=== PATIENT | female | born 1960 | race Caucasian/White ===

== ENCOUNTER 2018-04-05 18:18 | Inpatient (IN) | payer MEDICAID ==
--- NOTE | 2018-04-05 18:32 | EDPHY ---
H & P Stated Complaint: abdominal pain for over 3 weeks, not getting better Time Seen by Provider: 04/05/18 18:30 - Medical/Surgical History Hx Asthma: No Hx Chronic Respiratory Disease: No Hx Diabetes: No Hx Cardiac Disease: No Hx Renal Disease: No Hx Cirrhosis: No Hx Alcoholism: No Hx HIV/AIDS: No Hx Splenectomy or Spleen Trauma: No Other PMH: bulemia, hypothyroid, kidney stones, depression - Social History Smoking Status: Former smoker Constitutional: Initial Vital Signs Temperature (C) 36.7 C 04/05/18 18:22 Heart Rate 79 04/05/18 18:22 Respiratory Rate 18 04/05/18 18:22 Blood Pressure 116/67 04/05/18 18:22 O2 Sat (%) 96 04/05/18 18:22 O2 Delivery Mode Room Air Allergies/Adverse Reactions: ibuprofen Allergy (Verified 04/05/18 18:21) Penicillins Allergy (Verified 04/05/18 18:21) Home Medications: Medication Instructions Recorded Thyroid,Pork [[place] Thyroid] 0 mg PO 06/08/13 ESTRADIOL ACETATE 04/05/18 Xifaxan 04/05/18 Medical Decision Making - Diagnostics Imaging Results: Imaging Impressions Abdomen CT 04/05/18 18:45 Impression: 1. Complex conglomerate mass measuring 11 cm in diameter in the lower abdomen and pelvis. This is in association with nodular implantation on the contour of the liver suspicious for metastatic disease. This could reflect an ovarian primary. 2. See above report for additional findings. Results called and discussed with Harshad Thomas MD on 04/05/2018 19:53. Imaging: Discussed imaging studies w/ writer producer Radiologist, I viewed and interpreted images myself ED Course/Re-evaluation: CHIEF COMPLAINT: Abdominal pain HISTORY OF PRESENT ILLNESS: The patient is a 57 y/o female complaining of persistent lower abdominal pain for the last three weeks. She has been evaluated for this at [facility] multiple times and was recently placed on Xifaxan for "small bowel overgrowth syndrome." She has not had any imaging performed since symptoms began. She has a history of an eating disorder that she reports is in remission and has impaired peristalsis following a back injury. She takes magnesium daily and reports taking 8 pills today due to her discomfort. She did have a loose bowel movement afterwards. She denies fever, vomiting, urinary symptoms, cough, cold, chest pain, dyspnea, recent illness, or recent trauma. REVIEW OF SYSTEMS: A 10 point review of systems was performed and is negative with the exception of the elements mentioned in the history of present illness. PHYSICAL EXAM: HR, BP, O2 Sat, RR. Temp noted General Appearance: Alert, well hydrated, appropriate, and non-toxic appearing. Head: Atraumatic without scalp tenderness or obvious injury Eyes: Pupils equal, round, reactive to light and accommodation, EOMI, no trauma , no injection. Nose: Atraumatic, no rhinorrhea, clear. Throat: Mucus membranes moist. Neck: Supple Respiratory: No retractions, no distress, no wheezes, and no accessory muscle use. Lungs are clear to auscultation bilaterally. Cardiovascular: Regular rate and rhythm, no murmurs, rubs, or gallops. Good capillary refill all extremities. Gastrointestinal: Abdomen is bloated, diffuse tenderness, no masses, no rebound , no guarding, no peritoneal signs. Tympanitic bowel sounds. Musculoskeletal: Normal active ROM of all extremities, atraumatic. Neurological: Alert, appropriate, and interactive. Nonfocal. Skin: No rashes, good turgor, no nodules on palpation. Past medical history: Back injury with impaired peristalsis, history of eating disorder (bulimia), right femoral hernia, hypothyroidism, kidney stones Past surgical history: denies Family history: Father had bladder cancer Social history: Lives in [place]. Not employed/disabled. PCP: [facility] DIAGNOSTICS/PROCEDURES/CRITICAL CARE TIME: Abdominal CT: large abdominal mass DIFFERENTIAL DIAGNOSIS: The differential diagnosis for the patient's abdominal pain included but was not limited to ovarian cyst, pelvic inflammatory disease, ovarian torsion, urinary tract infection, ectopic , cholecystitis, and appendicitis. MEDICAL DECISION MAKING: This is a 57 y/o female with a history of bulimia and impaired peristalsis who presents with a 3-week history of persistent lower abdominal pain and bloating. She has a bloated and diffusely tender abdomen with tympanic bowel sounds on exam. She did have a loose bowel movement today following excessive magnesium use. Concern for mass. Plan for IV, ISTAT, abdomen CT, and symptomatic management as needed. 1L IV NS ordered. Reassessed patient and discussed results. She is resting comfortably. Recommended admission for further management, which she agrees to. Surgeon has been paged. CA 125 and CEA labs ordered. Consulted with Dr. Hernandez, surgeon. He will consult during admission. Spoke with hospitalist service. Dr. Pickett accepts admission. - Data Points Laboratory Results: Laboratory Results 04/05/18 18:36 04/05/18 18:36 04/05/18 04/05/18 04/05/18 20:17 19:33 18:52 WBC RBC Hgb POC Hgb 13.6 gm/dL gm/dL (12.6-16.3) Hct POC Hct 40 % % (38-47) MCV MCH MCHC RDW Plt Count MPV Neut % (Auto) Lymph % (Auto) [place] % (Auto) Eos % (Auto) Baso % (Auto) Nucleat RBC Rel Count Absolute Neuts (auto) Absolute Lymphs (auto) Absolute Monos (auto) Absolute Eos (auto) Absolute Basos (auto) Absolute Nucleated RBC Immature Gran % Immature Gran # POC Sodium 138 mEq/L mEq/L (135-145) Sodium POC Potassium 3.4 mEq/L mEq/L (3.3-5.0) Potassium POC Chloride 101 mEq/L mEq/L (97-110) Chloride Carbon Dioxide Anion Gap POC BUN 16 mg/dL mg/dL (7-23) BUN Creatinine POC Creatinine 1.0 mg/dL mg/dL (0.6-1.0) Estimated GFR Glucose POC Glucose 95 mg/dL mg/dL (70-100) Calcium Total Bilirubin Conjugated Bilirubin Unconjugated Bilirubin AST ALT Alkaline Phosphatase Total Protein Albumin Lipase Carcinoembryonic Ag Pending CA 125 Antigen Urine Color PALE YELLOW Urine Appearance CLEAR Urine pH 6.0 (5.0-7.5) Ur Specific [place] 1.011 (1.002-1.030) Urine Protein NEGATIVE (NEGATIVE) Urine Ketones NEGATIVE (NEGATIVE) Urine Blood NEGATIVE (NEGATIVE) Urine Nitrate NEGATIVE (NEGATIVE) Urine Bilirubin NEGATIVE (NEGATIVE) Urine Urobilinogen NEGATIVE EU EU (0.2-1.0) Ur Leukocyte Esterase NEGATIVE (NEGATIVE) Urine RBC 10-15 /hpf H /hpf (0-3) Urine WBC 1-3 /hpf /hpf (0-3) Ur Epithelial Cells TRACE /lpf /lpf (NONE-1+) Urine Bacteria TRACE /hpf H /hpf (NONE SEEN) Urine Glucose NEGATIVE (NEGATIVE) 04/05/18 04/05/18 04/05/18 18:36 18:36 18:36 WBC 11.41 10^3/uL H 10^3/uL (3.80-9.50) RBC 3.94 10^6/uL L 10^6/uL (4.18-5.33) Hgb 13.5 g/dL g/dL (12.6-16.3) POC Hgb Hct 38.2 % % (38.0-47.0) POC Hct MCV 97.0 fL fL (81.5-99.8) MCH 34.3 pg H pg (27.9-34.1) MCHC 35.3 g/dL g/dL (32.4-36.7) RDW 11.8 % % (11.5-15.2) Plt Count 418 10^3/uL H 10^3/uL (150-400) MPV 10.1 fL fL (8.7-11.7) Neut % (Auto) 75.0 % H % (39.3-74.2) Lymph % (Auto) 15.9 % % (15.0-45.0) [place] % (Auto) 8.2 % % (4.5-13.0) Eos % (Auto) 0.3 % L % (0.6-7.6) Baso % (Auto) 0.3 % % (0.3-1.7) Nucleat RBC Rel Count 0.0 % % (0.0-0.2) Absolute Neuts (auto) 8.57 10^3/uL H 10^3/uL (1.70-6.50) Absolute Lymphs (auto) 1.81 10^3/uL 10^3/uL (1.00-3.00) Absolute Monos (auto) 0.94 10^3/uL H 10^3/uL (0.30-0.80) Absolute Eos (auto) 0.03 10^3/uL 10^3/uL (0.03-0.40) Absolute Basos (auto) 0.03 10^3/uL 10^3/uL (0.02-0.10) Absolute Nucleated RBC 0.00 10^3/uL 10^3/uL (0-0.01) Immature Gran % 0.3 % % (0.0-1.1) Immature Gran # 0.03 10^3/uL 10^3/uL (0.00-0.10) POC Sodium Sodium 134 mEq/L L mEq/L (135-145) POC Potassium Potassium 4.0 mEq/L mEq/L (3.3-5.0) POC Chloride Chloride 101 mEq/L mEq/L (97-110) Carbon Dioxide 26 mEq/l mEq/l (22-31) Anion Gap 7 mEq/L L mEq/L (8-16) POC BUN BUN 17 mg/dL mg/dL (7-23) Creatinine 0.8 mg/dL mg/dL (0.6-1.0) POC Creatinine Estimated GFR > 60 Glucose 87 mg/dL mg/dL (70-100) POC Glucose Calcium 9.9 mg/dL mg/dL (8.5-10.4) Total Bilirubin 0.4 mg/dL mg/dL (0.1-1.4) Conjugated Bilirubin 0.3 mg/dL mg/dL (0.0-0.5) Unconjugated Bilirubin 0.1 mg/dL mg/dL (0.0-1.1) AST 28 IU/L IU/L (14-46) ALT 30 IU/L IU/L (9-52) Alkaline Phosphatase 105 IU/L IU/L (38-126) Total Protein 6.9 g/dL g/dL (6.3-8.2) Albumin 3.9 g/dL g/dL (3.5-5.0) Lipase 91 IU/L IU/L (23-300) Carcinoembryonic Ag CA 125 Antigen Pending Urine Color Urine Appearance Urine pH Ur Specific [place] Urine Protein Urine Ketones Urine Blood Urine Nitrate Urine Bilirubin Urine Urobilinogen Ur Leukocyte Esterase Urine RBC Urine WBC Ur Epithelial Cells Urine Bacteria Urine Glucose Medications Given: Discontinued Medications Sodium Chloride (Ns) 1,000 mls @ 0 mls/hr IV EDNOW ONE; Wide Open PRN Reason: Protocol Stop: 04/05/18 18:45 Last Admin: 04/05/18 18:51 Dose: 1,000 mls Point of Care Test Results: Chemistry 04/05/18 18:52 POC Sodium 138 mEq/L mEq/L (135-145) POC Potassium 3.4 mEq/L mEq/L (3.3-5.0) POC Chloride 101 mEq/L mEq/L (97-110) POC BUN 16 mg/dL mg/dL (7-23) POC Creatinine 1.0 mg/dL mg/dL (0.6-1.0) POC Glucose 95 mg/dL mg/dL (70-100) ISTAT H&H 04/05/18 18:52 POC Hgb 13.6 gm/dL gm/dL (12.6-16.3) POC Hct 40 % % (38-47) Departure - Departure Disposition: [facility] Inpatient Acute Clinical Impression: Abdominal mass Qualifiers: Abdominal location: other location Qualified Code(s): R19.09 - Other intra- abdominal and pelvic swelling, mass and lump Abdominal pain Qualifiers: Abdominal location: generalized Qualified Code(s): R10.84 - Generalized abdominal pain Condition: Fair Referrals: Juli Rhodes PA [Primary Care Provider] - As per Instructions Report Scribed for: Harshad Thomas Report Scribed by: Belen Luciano Date of Report: 04/05/18 Time of Report: 19:00
[2018-04-05] MEDS ORDERED: NS 1,000 ML IV ONE (18:44)
[2018-04-05 18:53] LABS: PLATELET COUNT 418 10^3/uL (150-400)
[2018-04-05] MEDS ORDERED: IOPAMIDOL (ISOVUE-300) 100 ML BTL ONE (18:57)
[2018-04-05] MEDS ORDERED: ONDANSETRON 4 MG/2 ML VIAL IVP PRN (20:25)
[2018-04-05] MEDS ORDERED: ONDANSETRON DISINTEGRATING 4 MG TAB PO PRN (20:25)
[2018-04-05] MEDS ORDERED: ASPIRIN 325 MG TAB PO ONE (21:25)
--- NOTE | 2018-04-05 23:17 | SOAPPROG ---
SOAP Progress Note Assessment/Plan: Assessment: 57 FEMALE WITH ABD PAIN FOR 2 WEEKS/ NO GI SX OR FEVER CT REVEALS A LARGE PELVIC MASS WITH METS TO OMENTUM AND LIVER SURFACE CONSISTENT WITH OVARIAN CANCER CA-125 337 ABD SOFT BUT WITH PALPABLE MASS IN LOW ABDOMEN NO ADENOPATHY CHEST CLEAR COR RR PMH - ALL PCN, IBUPROFEN Plan:WILL NEED BX, EITHER CT GUIDED OR LAPARASCOPIC SURGICAL BX/ DISCUSS WITH IR, IM AND ONC 04/05/18 23:12 Objective: Vital Signs Temp Pulse Resp BP Pulse Ox 36.6 C 49 L 17 105/57 L 96 04/05/18 22:06 04/05/18 22:06 04/05/18 22:06 04/05/18 22:06 04/05/18 22:06 04/04/18 04/05/18 04/06/18 05:59 05:59 05:59 Intake Total 1000 Balance 1000 ICD10 Worksheet Patient Problems: Problems Problem Status Onset Abdominal mass Acute Abdominal pain Acute
--- NOTE | 2018-04-06 00:30 | PDGENHP ---
History and Physical - Chief Complaint Abdominal pain - History of Present Illness 57 yo F w/ minimal PMHx p/w 3 weeks of abdominal pain. Patient has had progressive abdominal pain for several weeks. She has chronic constipation related to a back injury for which she takes Magnesium. She has felt more constipated over the last few days so she increased her Mg dose. Over the last couple of days she has felt so fatigued she has not been able to get out of bed. She was prescribed rifaximin at [facility] for treatment of bacterial overgrowth but this was not helpful. She denies significant weigh loss (says about 2 lbs) or night sweats. In the ED CT scan of the abdomen was notable for large pelvic mass with likely metastasis to the liver concerning for ovarian primary. She is being admitted for expedited work-up of this. Discussed case with Dr. Pickett, records reviewed. History Information - Allergies/Home Medication List Allergies/Adverse Reactions: ibuprofen Allergy (Verified 04/05/18 18:21) Penicillins Allergy (Verified 04/05/18 18:21) Home Medications: Acyclovir [Zovirax 400 mg (*)] 400 mg PO BID PRN 04/05/18 [Last Taken Unknown] Estradiol [Estradiol] 1 patch TD TUFR 04/05/18 [Last Taken 04/02/18] Herbals/Supplements -Info Only 1 ea PO DAILY 04/05/18 [Last Taken Unknown] Rifaximin [Xifaxan 200mg (*)] 400 mg PO TID 04/05/18 [Last Taken 04/05/18] Thyroid [[place] Thyroid 60 MG (*)] 60 mg PO DAILY 04/05/18 [Last Taken 04/05/18] I have personally reviewed and updated: family history, medical history - Past Medical History Additional medical history: Urolithiasis - Surgical History Reports: spinal surgery - Family History Additional family history: Father had bladder cancer - Social History Smoking Status: Former smoker (Quit in 2000) Review of Systems Review of Systems: ROS: 10pt was reviewed & negative except for what was stated in HPI & below Physical Exam Physical Exam: Temp Pulse Resp BP Pulse Ox 36.6 C 57 L 17 105/64 94 04/05/18 23:51 04/05/18 23:51 04/05/18 23:51 04/05/18 23:51 04/05/18 23:51 Constitutional: no apparent distress, not in pain Eyes: PERRL, EOMI Ears, Nose, Mouth, Throat: moist mucous membranes, no oral mucosal ulcers Cardiovascular: regular rate and rhythym, no murmur, rub, or gallop Respiratory: no respiratory distress, no rales or rhonchi Gastrointestinal: normoactive bowel sounds, other (Mass palpable in lower abdomen) Skin: warm, normal color Musculoskeletal: full muscle strength, no muscle tenderness Neurologic: AAOx3, CN II-XII Intact Psychiatric: interacting appropriately, not anxious Lab Data & Imaging Review 04/05/18 18:36 04/05/18 18:36 WBC 11.41 10^3/uL (3.80-9.50) H 04/05/18 18:36 RBC 3.94 10^6/uL (4.18-5.33) L 04/05/18 18:36 Hgb 13.5 g/dL (12.6-16.3) 04/05/18 18:36 POC Hgb 13.6 gm/dL (12.6-16.3) 04/05/18 18:52 Hct 38.2 % (38.0-47.0) 04/05/18 18:36 POC Hct 40 % (38-47) 04/05/18 18:52 MCV 97.0 fL (81.5-99.8) 04/05/18 18:36 MCH 34.3 pg (27.9-34.1) H 04/05/18 18:36 MCHC 35.3 g/dL (32.4-36.7) 04/05/18 18:36 RDW 11.8 % (11.5-15.2) 04/05/18 18:36 Plt Count 418 10^3/uL (150-400) H 04/05/18 18:36 MPV 10.1 fL (8.7-11.7) 04/05/18 18:36 Neut % (Auto) 75.0 % (39.3-74.2) H 04/05/18 18:36 Lymph % (Auto) 15.9 % (15.0-45.0) 04/05/18 18:36 [place] % (Auto) 8.2 % (4.5-13.0) 04/05/18 18:36 Eos % (Auto) 0.3 % (0.6-7.6) L 04/05/18 18:36 Baso % (Auto) 0.3 % (0.3-1.7) 04/05/18 18:36 Nucleat RBC Rel Count 0.0 % (0.0-0.2) 04/05/18 18:36 Absolute Neuts (auto) 8.57 10^3/uL (1.70-6.50) H 04/05/18 18:36 Absolute Lymphs (auto) 1.81 10^3/uL (1.00-3.00) 04/05/18 18:36 Absolute Monos (auto) 0.94 10^3/uL (0.30-0.80) H 04/05/18 18:36 Absolute Eos (auto) 0.03 10^3/uL (0.03-0.40) 04/05/18 18:36 Absolute Basos (auto) 0.03 10^3/uL (0.02-0.10) 04/05/18 18:36 Absolute Nucleated RBC 0.00 10^3/uL (0-0.01) 04/05/18 18:36 Immature Gran % 0.3 % (0.0-1.1) 04/05/18 18:36 Immature Gran # 0.03 10^3/uL (0.00-0.10) 04/05/18 18:36 POC Sodium 138 mEq/L (135-145) 04/05/18 18:52 Sodium 134 mEq/L (135-145) L 04/05/18 18:36 POC Potassium 3.4 mEq/L (3.3-5.0) 04/05/18 18:52 Potassium 4.0 mEq/L (3.3-5.0) 04/05/18 18:36 POC Chloride 101 mEq/L (97-110) 04/05/18 18:52 Chloride 101 mEq/L (97-110) 04/05/18 18:36 Carbon Dioxide 26 mEq/l (22-31) 04/05/18 18:36 Anion Gap 7 mEq/L (8-16) L 04/05/18 18:36 POC BUN 16 mg/dL (7-23) 04/05/18 18:52 BUN 17 mg/dL (7-23) 04/05/18 18:36 Creatinine 0.8 mg/dL (0.6-1.0) 04/05/18 18:36 POC Creatinine 1.0 mg/dL (0.6-1.0) 04/05/18 18:52 Estimated GFR > 60 04/05/18 18:36 Glucose 87 mg/dL (70-100) 04/05/18 18:36 POC Glucose 95 mg/dL (70-100) 04/05/18 18:52 Calcium 9.9 mg/dL (8.5-10.4) 04/05/18 18:36 Total Bilirubin 0.4 mg/dL (0.1-1.4) 04/05/18 18:36 Conjugated Bilirubin 0.3 mg/dL (0.0-0.5) 04/05/18 18:36 Unconjugated Bilirubin 0.1 mg/dL (0.0-1.1) 04/05/18 18:36 AST 28 IU/L (14-46) 04/05/18 18:36 ALT 30 IU/L (9-52) 04/05/18 18:36 Alkaline Phosphatase 105 IU/L (38-126) 04/05/18 18:36 Total Protein 6.9 g/dL (6.3-8.2) 04/05/18 18:36 Albumin 3.9 g/dL (3.5-5.0) 04/05/18 18:36 Lipase 91 IU/L (23-300) 04/05/18 18:36 Carcinoembryonic Ag 0.42 ng/mL (0.00-3.00) 04/05/18 20:17 CA 125 Antigen 337.0 U/mL (0.0-35.0) H 04/05/18 18:36 Urine Color PALE YELLOW 04/05/18 19:33 Urine Appearance CLEAR 04/05/18 19:33 Urine pH 6.0 (5.0-7.5) 04/05/18 19:33 Ur Specific [place] 1.011 (1.002-1.030) 04/05/18 19:33 Urine Protein NEGATIVE (NEGATIVE) 04/05/18 19:33 Urine Ketones NEGATIVE (NEGATIVE) 04/05/18 19:33 Urine Blood NEGATIVE (NEGATIVE) 04/05/18 19:33 Urine Nitrate NEGATIVE (NEGATIVE) 04/05/18 19:33 Urine Bilirubin NEGATIVE (NEGATIVE) 04/05/18 19:33 Urine Urobilinogen NEGATIVE EU (0.2-1.0) 04/05/18 19:33 Ur Leukocyte Esterase NEGATIVE (NEGATIVE) 04/05/18 19:33 Urine RBC 10-15 /hpf (0-3) H 04/05/18 19:33 Urine WBC 1-3 /hpf (0-3) 04/05/18 19:33 Ur Epithelial Cells TRACE /lpf (NONE-1+) 04/05/18 19:33 Urine Bacteria TRACE /hpf (NONE SEEN) H 04/05/18 19:33 Urine Glucose NEGATIVE (NEGATIVE) 04/05/18 19:33 Imaging Review: Imaging Impressions Abdomen CT 04/05/18 18:45 Impression: 1. Complex conglomerate mass measuring 11 cm in diameter in the lower abdomen and pelvis. This is in association with nodular implantation on the contour of the liver suspicious for metastatic disease. This could reflect an ovarian primary. 2. See above report for additional findings. Results called and discussed with Harshad Thomas MD on 04/05/2018 19:53. Assessment & Plan Assessment: 57 yo F p/w abdominal pain and found to have 11 cm pelvic mass concerning for ovarian cancer. Plan: 1. Pelvic mass - Presents with 3 weeks of abdominal discomfort; CT notable for complex conglomerate mass measuring 11 cm in diameter in the lower abdomen and pelvis. Nodular implantation on the contour of the liver suspicious for metastatic disease, which could reflect an ovarian primary. - Admit for expedited work-up - CA-125 337 - General surgery consulted re: possible biopsy, appreciate assistance - Will make NPO @ [place] - Oncology consult in the morning Diet - NPO @ [place] Code - Full Ppx - SCDs Dispo - Admit under inpatient status noting need for biopsy and further work-up
[2018-04-06] MEDS ORDERED: D5W 1/2 NS 1,000 ML IV SCH (06:00)
--- NOTE | 2018-04-06 08:22 | PDMN ---
Medical Necessity Medical necessity: est los>2mn for pelvic mass w/ 3 wks abd discomfort, suspicious for ovarian primary w/mets; admit for bx , CT guided vs lap surgery, and further w/u; per order and H&P 04/05/18
--- NOTE | 2018-04-06 11:50 | HOSPPROG ---
Hospitalist Progress Note Assessment/Plan: 57 yo F w pelvic mass concerning for ovarian CA pelvic mass: surgical bx today no peritoneal signs ? ovarian ca: elevated ca 125 biopsy today abdominal painL reasonable attributed to pelvic mass dispo: inpt proph: [facility] starting tomorrow Subjective: case d/w dr negron. ct images reviewed/interpreted by me Objective: Vital Signs Temp Pulse Resp BP Pulse Ox 36.7 C 52 L 15 91/62 L 92 04/06/18 08:39 04/06/18 08:39 04/06/18 08:39 04/06/18 08:39 04/06/18 08:39 04/05/18 04/06/18 04/07/18 05:59 05:59 05:59 Intake Total 1350 Output Total 1100 500 Balance 250 -500 - Physical Exam Constitutional: no apparent distress, appears nourished Eyes: PERRL, anicteric sclera Ears, Nose, Mouth, Throat: moist mucous membranes, hearing normal Cardiovascular: regular rate and rhythym, no murmur, rub, or gallop, No tachycardia Respiratory: no respiratory distress, no rales or rhonchi Gastrointestinal: normoactive bowel sounds, other (pelvic mass) Genitourinary: No dodson in urethra Skin: warm, normal color Musculoskeletal: full muscle strength Neurologic: AAOx3 ICD10 Worksheet Patient Problems: Problems Problem Status Onset Abdominal mass Acute Abdominal pain Acute
[2018-04-06] MEDS ORDERED: MIDAZOLAM 2 MG/2 ML VIAL IVP ONE (13:44)
[2018-04-06] MEDS ORDERED: BUPIVACAINE/EPI 0.5% 30 ML SDV ONE (13:46)
[2018-04-06] MEDS ORDERED: ceFAZolin 1 GM/5 ML SYR ONE (13:47)
[2018-04-06] MEDS ORDERED: HEPARIN 5,000 UNIT/0.5 ML INJ ONE (13:47)
--- NOTE | 2018-04-06 13:47 | ASMTCMCOM ---
CM Note CM Note Notes: Pt admitted for possible ovarian ca. Pt to get biopsy. DC needs TBD. Date Signed: 04/06/2018 01:46 PM Electronically Signed By:Alison Gregg LCSW
--- NOTE | 2018-04-06 13:47 | PDANEPAE ---
ANE History of Present Illness laparoscopic pelvic mass biopsy ANE Past Medical History - Pulmonary History Hx Oxygen in Use at Home: No Hx Sleep Apnea: No Sleep Apnea Screening Result - Last Documented: Negative - Endocrine History Hx Diabetes: No - Renal History Hx Renal Disorders: Yes Renal History Comment: stones - Chronic Pain History Chronic Pain: No ANE Review of Systems Review of systems is: negative Review of Systems: - Exercise capacity METS (RN): 4 METS ANE Patient History - Allergies Allergies/Adverse Reactions: ibuprofen Allergy (Verified 04/05/18 18:21) Penicillins Allergy (Verified 04/05/18 18:21) - Home Medications Home medications: home medication list seen and reviewed Home Medications: Acyclovir [Zovirax 400 mg (*)] 400 mg PO BID PRN 04/05/18 [Last Taken Unknown] Estradiol [Estradiol] 1 patch TD TUFR 04/05/18 [Last Taken 04/02/18] Herbals/Supplements -Info Only 1 ea PO DAILY 04/05/18 [Last Taken Unknown] Rifaximin [Xifaxan 200mg (*)] 400 mg PO TID 04/05/18 [Last Taken 04/05/18] Thyroid [[place] Thyroid 60 MG (*)] 60 mg PO DAILY 04/05/18 [Last Taken 04/05/18] - NPO status NPO Status: no food or drink >8 hours NPO Since - Liquids (Date): 04/06/18 NPO Since - Liquids (Time): 00:00 NPO Since - Solids (Date): 04/06/18 NPO Since - Solids (Time): 00:00 - Anes Hx Anes Hx: no prior problems - Smoking Hx Smoking Status: Former smoker (Quit in 2000) - Family Anes Hx Family Anes Hx: none ANE Labs/Vital Signs - Labs Result Diagrams: 04/05/18 18:36 04/05/18 18:36 - Vital Signs Vital Signs: reviewed preoperatively; see RN documention for details Blood Pressure: 93/55 Heart Rate: 60 Respiratory Rate: 15 O2 Sat (%): 96 Height: 167.64 cm Weight: 52.9 kg ANE Physical Exam - Airway Neck exam: FROM Mallampati Score: Class 3 Mouth exam: normal dental/mouth exam - Pulmonary Pulmonary: no respiratory distress - Cardiovascular Cardiovascular: regular rate and rhythym - ASA Status ASA Status: II ANE Anesthesia Plan Anesthesia Plan: general endotracheal anesthesia
[2018-04-06] MEDS ORDERED: HEPARIN 1000 UNIT/1 ML MDV ONE (13:52)
[2018-04-06] MEDS ORDERED: PROPOFOL 200 MG/20 ML VIAL ONE (13:53)
[2018-04-06] MEDS ORDERED: fentaNYL 250 MCG/5 ML INJ ONE (13:53)
[2018-04-06] MEDS ORDERED: ROCURONIUM 50 MG/5 ML VIAL ONE (13:53)
[2018-04-06] MEDS ORDERED: ONDANSETRON 4 MG/2 ML VIAL ONE (13:53)
[2018-04-06] MEDS ORDERED: LIDOCAINE 2% 100 MG/5 ML SYR ONE (13:53)
[2018-04-06] MEDS ORDERED: DEXAMETHASONE 4 MG/ML VIAL ONE (13:53)
[2018-04-06] MEDS ORDERED: NALOXONE HCL 0.4 MG/ML INJ IVP PRN (14:01)
[2018-04-06] MEDS ORDERED: DEXAMETHASONE 4 MG/ML VIAL IVP PRN (14:01)
[2018-04-06] MEDS ORDERED: PROMETHAZINE HCL 25 MG/ML INJ IVP PRN (14:01)
[2018-04-06] MEDS ORDERED: fentaNYL 100 MCG/2 ML INJ IVP PRN (14:01)
[2018-04-06] MEDS ORDERED: HYDROmorphONE/DILAUDID 1 MG/ML INJ IVP PRN ×2 (14:01→15:39)
[2018-04-06] MEDS ORDERED: ACETAMINOPHEN 500 MG TAB PO PRN (14:01)
[2018-04-06] MEDS ORDERED: HYDROCODONE/APAP 5/325 TAB PO PRN (14:01)
[2018-04-06] MEDS ORDERED: MEPERIDINE 25 MG/0.5 ML AMP IVP PRN (14:01)
[2018-04-06] MEDS ORDERED: oxyCODONE IR 5 MG TAB PO PRN (14:01)
[2018-04-06] MEDS ORDERED: MIDAZOLAM 2 MG/2 ML VIAL ONE (14:03)
--- NOTE | 2018-04-06 14:03 | POSTANESTH ---
Post Anesthetic Evaluation Cardiovascular Status: Normal, Stable, Similar to Pre-Op Cond Respiratory Status: Normal, Stable, Similar to Pre-op Cond. Level of Consciousness/Mental Status: Can Participate in Eval, Mildly Sleepy, Arousable Pain Control: Adequate, Prn Tx Ordered Nausea/Vomiting Control: Adequate, Prn Tx Ordered Complications Possibly Related to Anesthesia: None Noted
[2018-04-06] MEDS ORDERED: levOFLOXACIN 500 MG/DEXTROSE/100 ML BAG IV ONE (14:26)
--- NOTE | 2018-04-06 14:29 | SOAPPROG ---
SOAP Progress Note Assessment/Plan: Assessment: 57 FEMALE WITH ABD PAIN FOR 2 WEEKS/ NO GI SX OR FEVER CT REVEALS A LARGE PELVIC MASS WITH METS TO OMENTUM AND LIVER SURFACE CONSISTENT WITH OVARIAN CANCER CA-125 337 ABD SOFT BUT WITH PALPABLE MASS IN LOW ABDOMEN NO ADENOPATHY CHEST CLEAR COR RR PMH - ALL PCN, IBUPROFEN Plan:WILL NEED BX, EITHER CT GUIDED OR LAPARASCOPIC SURGICAL BX/ DISCUSS WITH IR, IM AND ONC 04/05/18 23:12 04/06/18 14:27 WILL ARRANGE FOR LAPARASCOPIC BX/ RISKS AND OPTIONS FULLY DISCUSSED AND SHE WISHES TO PROCEED Objective: Vital Signs Temp Pulse Resp BP Pulse Ox 36.8 C 60 15 93/55 L 96 04/06/18 13:19 04/06/18 13:47 04/06/18 13:47 04/06/18 13:47 04/06/18 13:47 04/05/18 04/06/18 04/07/18 05:59 05:59 05:59 Intake Total 1350 Output Total 1100 500 Balance 250 -500 ICD10 Worksheet Patient Problems: Problems Problem Status Onset Abdominal mass Acute Abdominal pain Acute
[2018-04-06] MEDS ORDERED: SUGAMMADEX SODIUM 200 MG/2 ML VIAL IVP ONE (15:28)
--- NOTE | 2018-04-06 15:36 | POSTOPPROG ---
Post Op Note Date of Operation: 04/06/18 Surgeon: Osiel Hernandez Anesthesiologist: JACKI Anesthesia: GET(General Endotracheal) Pre-op Diagnosis: PELVIC MASS Post-op Diagnosis: SAME Indication: PAIN, DIAGNOSIS Procedure: LAPARASCOPIC BX PELVIC MASS AND LIVER BX Findings: DIFFUSE CARCINATOSIS WITH LARGE PELVIC MASS AND SUPERFICIAL LIVER IMPLANTS Inf/Abcess present in the surg proc area at time of surgery?: No Depth: Organ Space EBL: Minimal Complications: 0 Specimen(s): LIVER NODULE AND PELVIC MASS BIOPSIES
[2018-04-06] MEDS ORDERED: OXYCODONE/APAP 5/325 TAB PO PRN (15:39)
[2018-04-06] MEDS ORDERED: D5W 1/2 NS W/ 20 KCl/L 1,000 ML IV SCH (15:45)
[2018-04-06] MEDS ORDERED: levOFLOXACIN 500 MG/DEXTROSE 100 ML IV ONE (16:00)
[2018-04-06] MEDS: ACETAMINOPHEN 325 MG TAB PO PRN (20:57)
[2018-04-07] MEDS: ACETAMINOPHEN 325 MG TAB PO PRN (05:53)
[2018-04-07 08:48] VITALS: BP 101/68
[2018-04-07] MEDS ORDERED: Herbals/Supplements -Info Only PO SCH (09:00)
[2018-04-07] MEDS ORDERED: THYROID 60 MG TAB PO SCH ×2 (09:00)
--- NOTE | 2018-04-07 11:58 | SOAPPROG ---
SOAP Progress Note Assessment/Plan: Assessment: 57 FEMALE WITH ABD PAIN FOR 2 WEEKS/ NO GI SX OR FEVER CT REVEALS A LARGE PELVIC MASS WITH METS TO OMENTUM AND LIVER SURFACE CONSISTENT WITH OVARIAN CANCER CA-125 337 ABD SOFT BUT WITH PALPABLE MASS IN LOW ABDOMEN NO ADENOPATHY CHEST CLEAR COR RR PMH - ALL PCN, IBUPROFEN Plan:WILL NEED BX, EITHER CT GUIDED OR LAPARASCOPIC SURGICAL BX/ DISCUSS WITH IR, IM AND ONC 04/05/18 23:12 04/06/18 14:27 WILL ARRANGE FOR LAPARASCOPIC BX/ RISKS AND OPTIONS FULLY DISCUSSED AND SHE WISHES TO PROCEED 04/07/18 11:55 DOING WELL POSTOP/ VITAL SIGNS STABLE/ AFEBRILE/ FINAL PATH PENDING BUT LIKELY OVARIAN PLAN ONCOLOGY CONSULT/ WILL PROBABLY GET CHEMOTHERAPY 1ST PRIOR TO ANY DEBULKING SURGERY/ MAY NEED PORT Objective: Vital Signs Temp Pulse Resp BP Pulse Ox 36.9 C 66 16 101/68 93 04/07/18 08:46 04/07/18 08:46 04/07/18 08:46 04/07/18 08:46 04/07/18 08:46 04/06/18 04/07/18 04/08/18 05:59 05:59 05:59 Intake Total 1350 1400 Output Total 1100 1960 Balance 250 -560 ICD10 Worksheet Patient Problems: Problems Problem Status Onset Abdominal mass Acute Abdominal pain Acute
[2018-04-07] MEDS ORDERED: IOPAMIDOL (ISOVUE-300) 100 ML BTL ONE (12:26)
--- NOTE | 2018-04-07 13:10 | HOSPPROG ---
Hospitalist Progress Note Assessment/Plan: 57 yo F w pelvic mass concerning for ovarian CA pelvic mass: surgical bx yesterday no peritoneal signs ? ovarian ca: elevated ca 125 biopsy pending abdominal painL reasonable attributed to pelvic mass dispo: inpt proph: home today > 30 minutes ofn dc see dc summary Subjective: anxious for dc. outpatient follow up arranged Objective: Vital Signs Temp Pulse Resp BP Pulse Ox 36.9 C 66 16 101/68 93 04/07/18 08:46 04/07/18 08:46 04/07/18 08:46 04/07/18 08:46 04/07/18 08:46 04/06/18 04/07/18 04/08/18 05:59 05:59 05:59 Intake Total 1350 1400 Output Total 1100 1960 Balance 250 -560 - Physical Exam Constitutional: no apparent distress, appears nourished Eyes: PERRL, anicteric sclera Ears, Nose, Mouth, Throat: moist mucous membranes, hearing normal Cardiovascular: regular rate and rhythym, no murmur, rub, or gallop Respiratory: no respiratory distress, no rales or rhonchi Gastrointestinal: normoactive bowel sounds, soft, non-tender abdomen Genitourinary: no bladder fullness, No dodson in urethra Skin: warm, normal color Musculoskeletal: full muscle strength Neurologic: AAOx3 ICD10 Worksheet Patient Problems: Problems Problem Status Onset Abdominal mass Acute Abdominal pain Acute
--- NOTE | 2018-04-07 13:41 | GCON ---
[f rep st] CONSULTATION ONCOLOGY CONSULTATION DATE OF CONSULTATION: 04/07/2018 REASON FOR CONSULTATION: Probable ovarian carcinoma. HISTORY OF PRESENT ILLNESS: The patient is a pleasant 57-year-old female who presented to the [facility] with several weeks of progressive abdominal pain and mild distention. She did notice some increas ing constipation. A CT scan of the abdomen and pelvis done in the emergency room revealed a large (11 cm) conglomerate mass in the lower abdomen and pelvis. There was a nodular contour of the liver suspicious of liver i nvolvement. The patient was seen in surgical consultation by Dr. Hernandez. She underwent a laparoscopy with biopsy of her pelvic mass yesterday. At the time of surgery, she was found to have diffuse carcinomatosis w ith a large pelvic mass and superficial liver implants on the surface of the liver. Final pathology is currently pending. Her CA-125 is elevated. Today, she is accompanied by her friend and her daughter. PAST MEDICAL HISTORY: Nephrolithiasis. PAST SURGICAL HISTORY: Lumbar disk surgery. FAMILY HISTORY: Patient reports her father had a bladder cancer. He was a smoker. She denies any f amily historyof breast or ovarian cancer. Her mother of natural causes at age 92. SOCIAL HISTORY: The patient lives in [place]. 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 She has a daughter who lives in [place]. She is single. She is a former smoker, quitting in 2000. She drinks alcohol oc casionally. She exercises regularly, including yoga. REVIEW OF SYSTEMS: As outlined above. Remainder of 12-point review of systems otherwise negative. PHYSICAL EXAMINATION: GENERAL: Patient is resting comfortably in bed. She is in no acute distress. HEENT: Pupils equal. Sclerae nonicteric. NECK: There is no palpable submandibular, cervical, or supraclavicular adenopathy. HEART: Regular without murmur. LUNGS: Clear bilaterally. No wheeze, rhonchi, or crackles. No flank tenderness. ABDOMEN: Soft, nontender, nondistended with no organom egaly or mass. Surgical port sites are healed. Bowel sounds are normoactive. EXTREMITIES: No extr emity swelling or edema. NEUROLOGIC: Patient alert, oriented, and appropriate. LABORATORY/IMAGING: CT findings as outlined above. Sodium 138, potassium 3.4, chloride 101, creatin ine 0.8. Bilirubin 0.4. Liver function tests unremarkable. CA-125 level is 337. CEA level is 0.42 . White count 11.1, hemoglobin 13.5, hematocrit 38.2, platelet count is 418,000. IMPRESSION: Large pelvic mass with peritoneal carcinomatosis and liver implants suspicious for ovari an carcinoma. The patient is a pleasant 57-year-old female who is found to have a large pelvic mass with associated peritoneal carcinomatosis and liver implants. She has undergone a diagnostic laparoscopy. Surgical pathology is currently pending. The overall picture strongly suggests an advanced ovarian carcinoma. This was discussed directly wit h the patient and her daughter. I have recommended a CT chest to complete her staging. Assuming that her CT chest shows no evidence of disease above the diaphragm, this would appear to rep resent stage III disease. Given that she has predominant disease in the upper abdomen, I think she i s an appropriate candidate for neoadjuvant chemotherapy prior to an attempted bulking surgery. This was discussed with her today. I would recommend 3 cycles of neoadjuvant Taxol carboplatin, followed by debulking surgery by a gynecologic oncologist. Her chemotherapy can be given locally. Our group can certainly help facilitate helping the patient e stablish with a gynecologic oncologist. The patient would prefer to go home today, which I think is certainly reasonable. We will arrange ou tpatient followup in the [facility] office to further coordinate her care. She will follow up with one of my partners in [place]. She and her daughter asked multiple questions, which were answered. Total time for today's visit was approximately 60 minutes of which greater than 50% was spent in coun seling and care coordination. /[id number]/MODL
--- NOTE | 2018-04-07 13:46 | GDS ---
[f rep st] DISCHARGE SUMMARY DISCHARGE DIAGNOSES: 1. Large pelvic mass, almost certainly ovarian cancer, status post biopsy. 2. Elevated CA-125. HOSPITAL COURSE: Please see admission history and physical by Dr. Cirilo Santa. Patient presented with abdominal pain. Imaging showed a large mass suggestive of ovarian cancer. She went to operative biopsy yesterday with Dr. Mehrdad Hernandez. He confirms that its clinical appearance is consistent with ovarian cancer. The pathology is pending at this time. Patient was offered port placement while here, but has declined. A contrasted CT the lungs for staging was performed, but the read is pending at this time. The plan is to discharge with outpatient followup. /[id number]/MODL MTDD
[2018-04-09] MEDS ORDERED: ESTRADIOL VIVELLE 0.1 MG PATCH TD SCH (11:07)
--- NOTE | 2018-05-02 11:27 | GOP ---
[f rep st] OPERATIVE REPORT DATE OF OPERATION: 04/06/2018 SURGEON: Osiel Hernandez MD PREOPERATIVE DIAGNOSIS: Pelvic mass. POSTOPERATIVE DIAGNOSIS: Pelvic mass. PROCEDURE PERFORMED: Laparoscopic biopsy of the pelvic mass and liver biopsy. FINDINGS: The patient was found to have diffuse carcinomatosis with a large pelvic mass and superfic ial liver implants. DESCRIPTION OF PROCEDURE: The patient was taken to the operating room where she received satisfactor y general endotracheal anesthesia by Dr. Guerrier. She was placed in the supine position, prepped an d draped in the usual sterile fashion. A periumbilical incision was made. A Veress needle was inser manoj. Pneumoperitoneum was established. Trocar was introduced. Laparoscope introduced. Good visual ization was obtained. Two other trocars were placed under direct vision. The abdomen was evaluated. A large pelvic mass was visualized. It did not appear to be readily resectable and there appeared to be significant other peritoneal disease. A wedge biopsy was taken from the pelvic mass and remove d. Hemostasis was obtained with electrocautery and the Harmonic Scalpel. This was evaluated on froz en section and was thought to be malignant and possibly consistent with a mesothelioma. Liver lesion s were identified as well and a wedge biopsy was taken of the right lobe of the liver with 1 of these masses, which was quite superficial in the liver. Hemostasis was obtained with the Harmonic Scalpel and electrocautery. That specimen also was removed and sent for pathology. Hemostasis was assured. Trocars were removed under direct vision. Trocar sites were closed with 0 Vicryl for the fascia an d 4-0 Monocryl subcuticular stitch for the skin. All layers infiltrated with 0.5% Marcaine. Blood l oss was negligible. /[id number]/MODL
== END 2018-04-07 14:50 | disposition home or self-care (01) | DRG 951 ==
LOC: F1N 21:50
PROVIDERS: ADMIT Internal Medicine; ATTEND Internal Medicine
PROC: 0WBH4ZX Excision of Retroperitoneum, Percutaneous Endoscopic Approach, Diagnostic (ICD-10-PCS; principal; 2018-04-06 13:30)
PROC: 0FB04ZX Excision of Liver, Percutaneous Endoscopic Approach, Diagnostic (ICD-10-PCS; principal; 2018-04-06 13:30)
DX: C56.9 Malignant neoplasm of unspecified ovary (principal); C78.7 Secondary malignant neoplasm of liver and intrahepatic bile duct; C78.6 Secondary malignant neoplasm of retroperitoneum and peritoneum; E86.9 Volume depletion, unspecified; E03.9 Hypothyroidism, unspecified; R97.1 Elevated cancer antigen 125 [CA 125]; K59.00 Constipation, unspecified; F32.9 Major depressive disorder, single episode, unspecified; Z87.891 Personal history of nicotine dependence; Z87.442 Personal history of urinary calculi; Z86.59 Personal history of other mental and behavioral disorders; Z88.0 Allergy status to penicillin
CPT/HCPCS: 82435-PO; 82565-PO; 82947-PO; 84132-PO; 84295-PO; 84520-PO; 85014-PO; 86304-90; J1100; J1644; J1956; J2001; J2250; J2405; J2704; J3010; Q9967

== ENCOUNTER 2018-04-08 13:10 | Emergency (ER) | payer MEDICAID ==
--- NOTE | 2018-04-08 13:19 | EDPHY ---
H & P Stated Complaint: hx ovarian cancer/biopsy sat now with swelling at site Time Seen by Provider: 04/08/18 13:18 - Personal History Current Tetanus Diphtheria and Acellular Pertussis (TDAP): Unsure - Medical/Surgical History Hx Asthma: No Hx Chronic Respiratory Disease: No Hx Diabetes: No Hx Cardiac Disease: No Hx Renal Disease: No Hx Cirrhosis: No Hx Alcoholism: No Hx HIV/AIDS: No Hx Splenectomy or Spleen Trauma: No Other PMH: bulemia, hypothyroid, kidney stones, depression, alcohol abuse - Social History Smoking Status: Former smoker Constitutional: Initial Vital Signs Temperature (C) 36.5 C 04/08/18 13:14 Heart Rate 78 04/08/18 13:14 Respiratory Rate 18 04/08/18 13:14 Blood Pressure 106/69 04/08/18 13:14 O2 Sat (%) 94 04/08/18 13:14 O2 Delivery Mode Room Air Allergies/Adverse Reactions: ibuprofen Allergy (Verified 04/08/18 13:13) Penicillins Allergy (Verified 04/08/18 13:13) Home Medications: Medication Instructions Recorded Thyroid [[place] Thyroid 60 MG (*)] 60 mg PO DAILY 04/05/18 Medical Decision Making - Diagnostics Imaging: Discussed imaging studies w/ banquet server on call Radiologist, I viewed and interpreted images myself ED Course/Re-evaluation: CHIEF COMPLAINT: Swelling at biopsy site HISTORY OF PRESENT ILLNESS: The patient is a 57 y/o female with a recent history of a 106 mm ovarian mass complaining of swelling at the site of the ovarian biopsy. On 04/05/18, 4 days ago, she presented to this emergency department for a 3 week history of abdominal pain. During this visit she had labs and imaging studies performed which revealed a 106 mm ovarian mass with probable abdominal metastases. She was subsequently admitted to this hospital and had a biopsy performed by Dr. Hernandez, general surgeon. Yesterday she was discharged with an elevated CA-125. The plan was to start the patient on chemotherapy and then perform a pelvic exoneration study. She is scheduled to see the oncologist for the first time tomorrow, 04/09/18. Today she noticed swelling at one of the sites where the biopsy was performed. She denies fever, vomiting, urinary symptoms, cough, cold , chest pain, dyspnea, recent illness, or recent trauma. Prior medical records reviewed including discharge summary on 04/08/18. REVIEW OF SYSTEMS: A 10 point review of systems was performed and is negative with the exception of the elements mentioned in the history of present illness. PHYSICAL EXAM: HR, BP, O2 Sat, RR. Temp noted General Appearance: Alert, well hydrated, appropriate, and non-toxic appearing. Head: Atraumatic without scalp tenderness or obvious injury Eyes: Pupils equal, round, reactive to light and accommodation, EOMI, no trauma , no injection. Ears: Clear bilaterally, no perforation, normal landmarks Nose: Atraumatic, no rhinorrhea, clear. Throat: There is no erythema or exudates, no lesions, normal tonsils, mucus membranes moist. Neck: Supple, nontender, no lymphadenopathy. Respiratory: No retractions, no distress, no wheezes, and no accessory muscle use. Lungs are clear to auscultation bilaterally. Cardiovascular: Regular rate and rhythm, no murmurs, rubs, or gallops. Bilateral carotid, radial, dorsalis pedis, and posterior tibial pulses intact. Good capillary refill all extremities. Gastrointestinal: Well-healing incision over umbilicus. Healing incision just to the right of the umbilicus with mild swelling and ecchymosis. Abdomen is soft , nontender, non-distended, no rebound, no guarding, no peritoneal signs. Musculoskeletal: Normal active ROM of all extremities, atraumatic. Neurological: Alert, appropriate, and interactive. Nonfocal neuro. Skin: No rashes, good turgor, no nodules on palpation. Past medical history: 106mm Ovarian mass, back injury with impaired peristalsis , history of eating disorder (bulimia), right femoral hernia, hypothyroidism, kidney stones Past surgical history: Denies Family history: Father had bladder cancer Social history: Friend at bedside, lives in [place], not employed/disabled, PCP : [facility] DIAGNOSTICS/PROCEDURES/CRITICAL CARE TIME: Abdominal US: Small fluid collection at the trochar site, no sign of infection DIFFERENTIAL DIAGNOSIS: The differential diagnosis for the patient's abdominal pain included but was not limited to fluid collection, ovarian cancer, abdominal metastases, cellulitis, ovarian cyst, pelvic inflammatory disease, ovarian torsion, urinary tract infection, ectopic , cholecystitis, and appendicitis. MEDICAL DECISION MAKING: The patient is a 57 y/o female with a recent history of a 106 mm ovarian mass presenting with swelling at the site of the ovarian biopsy. She was discharged yesterday from this hospital after an admission for an ovarian mass biopsy performed by Dr. Hernandez. On exam she has a well-healing incision over umbilicus. There is also a healing incision just to the right of the umbilicus with mild swelling and ecchymosis, this most likely local swelling and ecchymosis. Based on her recent diagnoses she is concerned about this swelling and would like to have an ultrasound performed, which I am comfortable with. 1454: Consulted with Dr. Hernandez, general surgeon, who will consult on this patient. 1500: Patient has a small fluid collection at the trochar site without sign of infection. Dr. Hernandez believes the patient is safe to return home. Reassessed patient and discussed imaging findings. Return precautions provided; patient is comfortable with this plan. Departure - Departure Disposition: Home, Routine, Self-Care Clinical Impression: Pain at surgical incision, fluid collection at trochar site Condition: Good Instructions: Acute Abdominal Pain (ED) Additional Instructions: 1. Keep your appointment with the oncologist. 2. Follow up with Dr. Hernandez, general surgeon, this week. 3. Return to the Emergency Department for fever, chest pain, shortness of breath , increasing pain or other worsening of condition. Referrals: Juli Rhodes PA [Primary Care Provider] - As per Instructions Osiel Hernandez MD [Medical Doctor] - As per Instructions Report Scribed for: Harshad Thomas Report Scribed by: Alia Jc Date of Report: 04/08/18 Time of Report: 13:49
[2018-04-08 15:12] VITALS: BP 110/71
== END 2018-04-08 15:10 | disposition home or self-care (01) ==
DX: N99.89 Other postprocedural complications and disorders of genitourinary system (principal); Z87.891 Personal history of nicotine dependence

== ENCOUNTER → 2018-07-22 | Outpatient (CLI) | payer MEDICAID ==
[~2018-07-22] MED LIST: LIDOCAINE 1% 300 MG/30 ML SDV ONE
== END ==
LOC: FIMAGING 13:26
PROVIDERS: ATTEND Nurse Practitioner
DX: R18.0 Malignant ascites (principal); C45.9 Mesothelioma, unspecified; Z92.21 Personal history of antineoplastic chemotherapy

== ENCOUNTER → 2018-08-05 | Outpatient (CLI) | payer MEDICAID | LOC: FIMAGING 17:14 | PROC: 0W9G3ZX Drainage of Peritoneal Cavity, Percutaneous Approach, Diagnostic (ICD-10-PCS; principal; 2018-08-05) | DX: R18.8 Other ascites (principal) ==

== ENCOUNTER → 2018-08-12 | Outpatient (CLI) | payer MEDICAID | LOC: FIMAGING 13:19 | PROVIDERS: ATTEND Internal Medicine Hematology & Oncology | DX: C45.9 Mesothelioma, unspecified (principal) ==

== ENCOUNTER → 2018-08-23 | Outpatient (CLI) | payer MEDICAID | LOC: FIMAGING 11:39 | PROVIDERS: ATTEND Internal Medicine Hematology & Oncology | PROC: 0W9G3ZZ Drainage of Peritoneal Cavity, Percutaneous Approach (ICD-10-PCS; principal; 2018-08-23) | DX: R18.8 Other ascites (principal) ==

== ENCOUNTER → 2018-09-13 | Outpatient (CLI) | payer MEDICAID | LOC: FIMAGING 12:16 | PROVIDERS: ATTEND Internal Medicine Hematology & Oncology | PROC: 0W9F3ZZ Drainage of Abdominal Wall, Percutaneous Approach (ICD-10-PCS; principal; 2018-09-13) | DX: R18.8 Other ascites (principal) ==

== ENCOUNTER → 2018-10-03 | Outpatient (CLI) | payer MEDICAID | LOC: FIMAGING 11:29 | PROVIDERS: ATTEND Internal Medicine Hematology & Oncology | PROC: 0W9F3ZZ Drainage of Abdominal Wall, Percutaneous Approach (ICD-10-PCS; principal; 2018-10-03) | DX: R18.8 Other ascites (principal) ==

== ENCOUNTER → 2018-10-22 | Outpatient (CLI) | payer MEDICAID | LOC: FIMAGING 13:36 | PROVIDERS: ATTEND Internal Medicine Hematology & Oncology | PROC: 0W9G3ZZ Drainage of Peritoneal Cavity, Percutaneous Approach (ICD-10-PCS; principal; 2018-10-22) | DX: R18.8 Other ascites (principal) ==

== ENCOUNTER → 2018-11-26 | Outpatient (CLI) | payer MEDICAID | LOC: FIMAGING 11:27 | PROVIDERS: ATTEND Nurse Practitioner | DX: R19.09 Other intra-abdominal and pelvic swelling, mass and lump (principal) ==

== ENCOUNTER → 2019-03-18 | Outpatient (CLI) | payer MEDICAID | LOC: FIMAGING 11:42 ==

== ENCOUNTER → 2019-03-19 | Outpatient (CLI) | payer MEDICAID | LOC: FIMAGING 12:14 ==

== ENCOUNTER 2019-03-20 13:27 | Day surgery (SDC) | payer MEDICAID | END 2019-03-20 18:50 | disposition home or self-care (01) | LOC: FIMAGING 13:27 ==

== ENCOUNTER 2019-03-22 10:16 | Inpatient (IN) | payer MEDICAID | END 2019-03-27 17:06 | disposition hospice, home (50) | LOC: F2N 03-26 09:58 → F1N 03-26 11:22 → F2N 18:08 ==